=== PATIENT | female | born 1970 | race Caucasian/White ===

== ENCOUNTER 2019-08-14 09:16 | Emergency (ER) | payer MEDICARE ==
[~2019-08-14] VITALS: Ht 162.6 cm; Wt 128.6 kg
--- NOTE | 2019-08-14 09:41 | NUR ---
PT HAS CO FOOD POSSIBLY STUCK IN THROAT. PT STATES SHE IS UNABLE TO DRINK OR EAT ANYTHING, ATE SAUSAGE LAST NIGHT. PT NOT IN RESP DISTRESS, DENIES PAIN, SOB, OR CP. PT STATES SHE WILL SEE A SPECIALIST IN SEPTEMBER, HAS HAD HX OF SWALLOWING ISSUES.
[2019-08-14] MEDS ORDERED: ONDANSETRON 2MG/ML, 2ML ONE (09:59)
[2019-08-14] MEDS ORDERED: ONDANSETRON 2MG/ML, 2ML IVPush ONE (10:00)
[2019-08-14] MEDS ORDERED: SODIUM CHLORIDE FLUSH 10ML SYR IVF ONE (10:00)
[2019-08-14 10:08] LABS: BASOPHILS # (AUTO) 0.06 x10^3/uL (0-0.1); BASOPHILS % (AUTO) 1 % (0-1); EOSINOPHILS # (AUTO) 0.35 x10^3/uL (0-0.4); EOSINOPHILS % (AUTO) 4 % (1-7); LYMPHOCYTES % (AUTO) 25 % (22-44); MD NO; MEAN CORPUSCULAR HEMOGLOBIN 28.5 pg (27.0-34.8); MEAN CORPUSCULAR HGB CONC 32.8 g/dL (32.4-35.8); MEAN CORPUSCULAR VOLUME 86.8 fL (80-100); MEAN PLATELET VOLUME 8.2 fL (7.4-10.4); MONOCYTES # (AUTO) 0.46 x10^3/uL (0.2-0.8); MONOCYTES % (AUTO) 5 % (2-9); NEUTROPHILS # (AUTO) 5.82 x10^3/uL (1.8-6.8); NEUTROPHILS % (AUTO) 66 % (42-75); PLATELET COUNT 283 x10^3/uL (130-400); RED BLOOD COUNT 4.91 x10^6/uL (3.82-5.3); RED CELL DISTRIBUTION WIDTH 14.3 % (9.6-15.2)
[2019-08-14 10:17] LABS: ALANINE AMINOTRANSFERASE 14 U/L (12-78); ALBUMIN 3.3 g/dL (3.4-5.0); ANION GAP 7 mmol/L (5-15); CALCIUM 8.4 mg/dL (8.5-10.1); CHLORIDE 108 mmol/L (98-107); CREATININE 0.69 mg/dL (0.55-1.02)
[2019-08-14 10:19] LABS: ALKALINE PHOSPHATASE 88 U/L (45-117); TOTAL PROTEIN 7.8 g/dL (6.4-8.2)
--- NOTE | 2019-08-14 10:40 | NUR ---
Pt resting, back from imaging.
--- NOTE | 2019-08-14 11:36 | NUR ---
POC FOR ENDOSCOPY TO REMOVE FOOD.
[2019-08-14] MEDS ORDERED: PROPOFOL 10 MG/ML, 20ML ONE ×2 (12:22)
--- NOTE | 2019-08-14 12:28 | NUR ---
PT READY FOR ENDOSCOPY, ENDOSCOPY IN PROCESS, RN FROM GI ASSISTING W PROCEDURE. MD ALBA AT BEDSIDE. CONSENT COMPLETED.
[2019-08-14] MEDS ORDERED: PROPOFOL 10 MG/ML, 20ML IVPush ONE (12:30)
[2019-08-14 12:37] VITALS: BP 115/86
--- NOTE | 2019-08-14 12:47 | NUR ---
PT TOLERATED PROCEDURE. FAMILY AT BEDSIDE. VS STABLE.
--- NOTE | 2019-08-14 13:06 | NUR ---
Patient/Caregiver given discharge instructions and they have confirmed that they understand the instructions. Patient ambulatory with steady gait.
== END 2019-08-14 13:33 | disposition home or self-care (01) ==
LOC: ED 11:14
DX: T18.128A Food in esophagus causing other injury, initial encounter (principal); R11.2 Nausea with vomiting, unspecified; J45.909 Unspecified asthma, uncomplicated; X58.XXXA Exposure to other specified factors, initial encounter; Y93.89 Activity, other specified; Y92.89 Other specified places as the place of occurrence of the external cause; Y99.8 Other external cause status
CPT/HCPCS: 36415; 43247; 74220; 80053; 83690; 85025; 96374; 99152; 99285; J2405

== ENCOUNTER 2021-02-15 15:20 | Emergency (ER) | payer MEDICARE ==
[~2021-02-15] VITALS: Ht 162.6 cm; Wt 133.6 kg
[2021-02-15 17:32] LABS: BASOPHILS % (AUTO) 1 % (0-1); EOSINOPHILS % (AUTO) 1 % (1-7); LYMPHOCYTES % (AUTO) 26 % (22-44); MEAN CORPUSCULAR HEMOGLOBIN 28.1 pg (27.0-34.8); MEAN CORPUSCULAR HGB CONC 33.6 g/dL (32.4-35.8); MEAN PLATELET VOLUME 8.2 fL (7.4-10.4); MONOCYTES % (AUTO) 10 % (2-9); NEUTROPHILS % (AUTO) 62 % (42-75); PLATELET COUNT 260 x10^3/uL (130-400); RED BLOOD COUNT 5.05 x10^6/uL (3.82-5.3)
[2021-02-15 17:34] LABS: ALANINE AMINOTRANSFERASE 33 U/L (12-78); ALBUMIN 3.4 g/dL (3.4-5.0); ANION GAP 5 mmol/L (5-15); CALCIUM 8.7 mg/dL (8.5-10.1); CHLORIDE 111 mmol/L (98-107); CREATININE 0.85 mg/dL (0.55-1.02)
[2021-02-15 17:39] LABS: ALKALINE PHOSPHATASE 80 U/L (45-117); BILIRUBIN,TOTAL 0.5 mg/dL (0.2-1.0)
--- NOTE | 2021-02-15 19:32 | NUR ---
licensed loan officer note: Pt to room from lobby.
--- NOTE | 2021-02-15 19:44 | NUR ---
PT WITH 8 DAYS OF N/V/D +ABD PAIN. PT AMBULATORY TO BATHROOM FOR STOOL COLLECTION.
--- NOTE | 2021-02-15 20:23 | NUR ---
DR ODONNELL AT BEDSIDE. NO STOOL SAMPLE COLLECTED PT +BM BUT STATES "I MISED THE HAT" PT ASSESSMENT, POC DISCUSSED AND QUESTIONS ANSWERED.
[2021-02-15] MEDS ORDERED: SODIUM CHLORIDE 0.9% 1,000ML IVBOLUS ONE (20:30)
--- NOTE | 2021-02-15 20:36 | NUR ---
PIV EST AND IVF INFUSING NOTED W/O DIFFICULTY. COMMODE AT BEDSIDE. CALL LIGHT W/I REACH
--- NOTE | 2021-02-15 21:07 | NUR ---
DISCUSSED UA WITH DR ODONNELL. ORDER TO BE D/C. NO NEED FOR UA PER DR ODONNELL
--- NOTE | 2021-02-15 21:26 | NUR ---
SBAR RPT TO ARASELI DENNY
--- NOTE | 2021-02-15 21:26 | NUR ---
REPORT FROM RACHELE MARX
--- NOTE | 2021-02-15 22:00 | NUR ---
PT ON BSC, UNABLE TO PROVIDE STOOL.
[2021-02-15 22:30] VITALS: BP 138/72
--- NOTE | 2021-02-15 22:35 | NUR ---
PT STILL UNABE TO PROVIDE STOOL. MD AWARE, WILL RECHECK PT.
== END 2021-02-15 23:11 | disposition home or self-care (01) ==
LOC: ED 15:50
DX: K52.9 Noninfective gastroenteritis and colitis, unspecified (principal); R94.31 Abnormal electrocardiogram [ECG] [EKG]; J45.909 Unspecified asthma, uncomplicated
CPT/HCPCS: 36415; 76700; 80053; 83690; 84703; 85025; 93005; 96360; 99285; J7030